=== PATIENT | female | born 1960 | race Caucasian/White ===

== ENCOUNTER 2019-07-24 06:33 | Emergency (ER) | payer OTHER ==
[~2019-07-24 06:33] MED LIST: AMOXICILLIN500 MG PO; ROBITUSSIN AC10 ML PO; SYNTHROID175 MCG PO
[2019-07-24 07:47] VITALS: BP 129/64
== END 2019-07-24 07:51 | disposition home or self-care (01) | DRG 554 ==
LOC: ED 06:33
PROC: 3E0U33Z Introduction of Anti-inflammatory into Joints, Percutaneous Approach (ICD-10-PCS; principal; 2019-07-24)
PROC: 3E0U3BZ Introduction of Anesthetic Agent into Joints, Percutaneous Approach (ICD-10-PCS; 2019-07-24)
DX: M17.11 Unilateral primary osteoarthritis, right knee (principal)

== ENCOUNTER 2022-04-25 08:43 | Emergency (ER) | payer OTHER ==
[~2022-04-25] VITALS: Ht 154.9 cm; Wt 68.2 kg
[2022-04-25 09:34] VITALS: BP 146/73
[2022-04-25 09:36] VITALS: BP 142/82
[2022-04-25 09:45] VITALS: BP 122/73
[2022-04-25 10:00] VITALS: BP 138/71
[2022-04-25] MEDS ORDERED: OMNI-PAC300 MG PO ×2 (10:09→11:12)
[2022-04-25 10:15] VITALS: BP 131/112
[2022-04-25 11:14] VITALS: BP 131/112
== END 2022-04-25 11:15 | disposition home or self-care (01) | DRG 605 ==
LOC: ED 08:43
PROC: 0HQFXZZ Repair Right Hand Skin, External Approach (ICD-10-PCS; principal; 2022-04-25)
DX: S61.216A Laceration without foreign body of right little finger without damage to nail, initial encounter (principal); W26.9XXA Contact with unspecified sharp object(s), initial encounter